=== PATIENT | female | born 1970 | race Caucasian/White ===

== ENCOUNTER 2022-12-12 10:02 | Emergency (ER) | payer OTHER ==
[~2022-12-12] VITALS: Ht 160 cm; Wt 103.2 kg
[2022-12-12 10:27] VITALS: BP 99/61; PULSE 69; RESP 19; TEMP 98.1; O2SAT 96
[2022-12-12 10:30] VITALS: BP 99/61; PULSE 69; RESP 19; TEMP 98.1; O2SAT 96
[2022-12-12] MEDS ORDERED: FAMO-92 PO (12:04)
[2022-12-12] MEDS ORDERED: ONDA-188 PO (12:04)
== END 2022-12-12 12:11 | disposition home or self-care (01) ==
LOC: MED 10:02
DX: R10.9 Unspecified abdominal pain (principal); R11.2 Nausea with vomiting, unspecified; R19.7 Diarrhea, unspecified; Z79.899 Other long term (current) drug therapy; Z88.5 Allergy status to narcotic agent
CPT/HCPCS: 99283

== ENCOUNTER 2023-06-28 19:38 | Emergency (ER) | payer OTHER ==
[~2023-06-28] VITALS: Ht 160 cm; Wt 99.3 kg
[~2023-06-28 19:38] MED LIST: FAMO-92 PO; ONDA-188 PO
[2023-06-28 19:45] VITALS: BP 150/81; PULSE 98; RESP 20; TEMP 97.4; O2SAT 99
[2023-06-28 20:34] LABS: BASOPHILS # (AUTO) 0.1 K/uL (0.00-0.22); BASOPHILS % (AUTO) 0.8 % (0.0-2.0); EOSINOPHILS # (AUTO) 0.2 K/uL (0-0.4); EOSINOPHILS % (AUTO) 1.7 % (0.0-4.0); HEMATOCRIT 36.6 % (36-48); HEMOGLOBIN 12.7 g/dL (12.0-16.0); LYMPHOCYTES # (AUTO) 2.8 K/uL (2.5-16.5); LYMPHOCYTES % (AUTO) 24.7 % (20.5-51.1); MEAN CORPUSCULAR HEMOGLOBIN 31 pg (27-31); MEAN CORPUSCULAR HGB CONC 35 g/dL (33-37); MEAN CORPUSCULAR VOLUME 88.5 fL (80-94); MONOCYTES # (AUTO) 0.7 K/uL (0.8-1.0); MONOCYTES % (AUTO) 6.1 % (1.7-9.3); NEUTROPHILS # (AUTO) 7.4 K/uL (1.8-7.7); NEUTROPHILS % (AUTO) 66.7 % (42.2-75.2); PLATELET COUNT (AUTO) 305 K/uL (140-450); RED BLOOD CELL COUNT(AUTO) 4.14 MIL/uL (4.20-5.40); WHITE BLOOD COUNT (AUTO) 11.1 K/uL (4.8-10.8)
[2023-06-28] MEDS: KETOROLAC 30 MG/ML VIAL IM ONE (20:34)
[2023-06-28 20:49] LABS: CALCIUM 8.7 mg/dL (8.5-10.1); CARBON DIOXIDE 29.5 mmol/L (21-32); CREATININE 0.8 mg/dL (0.6-1.3); POTASSIUM 3.5 mmol/L (3.5-5.1)
[2023-06-28 20:59] LABS: ALANINE AMINOTRANSFERASE 17 U/L (12-78); ALBUMIN 3.3 g/dL (3.4-5.0); ALKALINE PHOSPHATASE 99 U/L (50-136); ASPARTATE AMINOTRANSFERASE 15 U/L (15-37); BILIRUBIN,DIRECT 0.1 mg/dL (0.0-0.3); TOTAL BILIRUBIN 0.2 mg/dL (0.0-1.0); TOTAL PROTEIN, SERUM 6.9 g/dL (6.4-8.2)
[2023-06-28] MEDS ORDERED: NAPR-337 PO (21:37)
[2023-06-28] MEDS ORDERED: LID5T TP (21:37)
[2023-06-28] MEDS ORDERED: CYCL-711 PO (21:37)
[2023-06-28] MEDS: LIDOCAINE 5% 1 EA PATCH TP ONE (21:55)
[2023-06-28 22:06] VITALS: BP 150/81; PULSE 98; RESP 20; TEMP 97.4; O2SAT 99
== END 2023-06-28 22:08 | disposition home or self-care (01) ==
LOC: MED 19:38
DX: S16.1XXA Strain of muscle, fascia and tendon at neck level, initial encounter (principal); Z88.8 Allergy status to other drugs, medicaments and biological substances; Z79.899 Other long term (current) drug therapy; X58.XXXA Exposure to other specified factors, initial encounter; Y93.89 Activity, other specified; Y99.8 Other external cause status; Y92.89 Other specified places as the place of occurrence of the external cause
CPT/HCPCS: 36415; 71045; 80048; 80076; 81025; 84484; 85025; 85379; 93005; 96372; 99285; J1885